=== PATIENT | female | born 1935 | race African-American/Black ===

== ENCOUNTER 2021-08-06 16:59 | Inpatient (IN) ==
[2021-08-06] MEDS ORDERED: SODIUM CHLORIDE 0.9% 1,000 ML IV STA ×2 (18:43→19:13)
[2021-08-06] MEDS ORDERED: ALBUTEROL/IPRATROPIUM 3 ML NEB RESP TX STA (18:43)
[2021-08-06 18:57] LABS: Basophils % 0.2 % (0.0-0.8); Eosinophils % 0.1 % (0.00-10.9); Hematocrit 48.1 VOL% (35.7-47.0); Immature Granulocytes % 0.4 %; Immature Granulocytes Absolute 0.04 #; Lymphocytes # 1.1 10*3/uL (1.4-4.0); Lymphocytes % 11.8 % (21.3-54.2); Mean Corpuscular HGB Conc 31.2 GM/DL (32-36); Mean Corpuscular Volume 92.5 FL (87-102); Monocytes # 0.4 10*3/uL (0.11-0.8); Monocytes % 4.2 % (1.7-12.7); Neutrophils % 83.3 % (38.7-73.9); Platelet Count 135 T/CUMM (130-400); White Blood Count 9.6 T/CUMM (4-12)
[2021-08-06 19:05] LABS: Albumin 3.3 G/DL (3.4-5.0); Bilirubin,Total 0.4 MG/DL (0.20-1.00); Osmolality,Calculated 368.3 MOS/KG (273-304); Potassium 3.7 MMOL/L (3.5-5.1); Total Protein 8.2 G/DL (6.4-8.2)
[2021-08-06] MEDS ORDERED: PIPERACILLIN/TAZOBACTAM 3,375 MG in SODIUM CHLORIDE 0.9% 100 ML IV STA (19:13)
[2021-08-06 19:40] LABS: Band Neutrophils 22 % (0-10); Lymphocytes 6 % (20-55); Metamyelocytes 2 %; Total Cells Counted 100
[2021-08-06 19:41] LABS: Platelet Estimate Normal
[2021-08-06 19:47] LABS: Arterial Base Excess iSTAT 2 MMOL/L (-2.5-2.5); Arterial Bicarbonate iSTAT 26.3 MMOL/L (20-26); Arterial O2 Saturation iSTAT 97 % (95-100); Arterial PCO2 iSTAT 38 MM HG (35-48); Arterial PO2 iSTAT 86 MM HG (80-95); Arterial Total CO2 iSTAT 27 MMO/L (23-27); Arterial pH iSTAT 7.443 (7.35-7.45)
[2021-08-06] MEDS ORDERED: MORPHINE 2 MG/1 ML SYRINGE IV PRN (20:09)
[2021-08-06] MEDS ORDERED: DEXTROSE 10% 250 ML BAG IV PRN (20:09)
[2021-08-06] MEDS ORDERED: GLUCAGON 1 MG VIAL IM PRN (20:09)
[2021-08-06] MEDS ORDERED: ONDANSETRON 4 MG/2 ML VIAL IV PRN (20:09)
[2021-08-06] MEDS ORDERED: ACETAMINOPHEN 325 MG TABLET PO PRN (20:09)
[2021-08-06 20:29] LABS: Bacteria,Urine Many /HPF (Few); RBC,Urine 49 /HPF (0-4)
[2021-08-06 20:32] LABS: Urine Appearance Turbid (Clear); Urine Color Brown (Yellow)
[2021-08-06 20:36] LABS: Bilirubin,Urine Negative (Negative); Blood, Urine Large mg/dL (Negative); Glucose,Urine (UA) Negative (Negative); Ketones,Urine Negative (Negative); Nitrite,Urine Positive (Negative); Protein,Urine 30 mg/dL (Negative); Urine Urobilinogen 0.2 eU/dL (<2.0); Urine pH 5.5 (4.5-8.0)
[2021-08-06 22:11] LABS: INR 1.1; PT Patient Result 12.3 SECS (10.5-12.0)
[2021-08-07] MEDS ORDERED: VANCOMYCIN INJ 1,000 MG in SODIUM CHLORIDE 0.9% 250 ML IV SCH
[2021-08-07] MEDS: ALBUTEROL/IPRATROPIUM 3 ML NEB RESP TX SCH ×4 (00:35→19:35)
[2021-08-07] MEDS: INSULIN LISPRO 100 UNIT/ML SUBCUT SCH ×4 (01:08→18:26)
[2021-08-07] MEDS: LACTATED RINGERS 1,000 ML IV SCH ×2 (01:12→10:41)
[2021-08-07 01:17] LABS: Basophils % 0.2 % (0.0-0.8); Hematocrit 40.7 VOL% (35.7-47.0); Immature Granulocytes % 0.2 %; Immature Granulocytes Absolute 0.01 #; Lymphocytes % 20.6 % (21.3-54.2); Mean Corpuscular Volume 93.6 FL (87-102); Monocytes # 0.4 10*3/uL (0.11-0.8); Monocytes % 8.8 % (1.7-12.7); Neutrophils % 70.2 % (38.7-73.9); Red Blood Count 4.35 MC/CUMM (3.8-5.5)
[2021-08-07 01:19] LABS: Hemoglobin 12.6 GM/DL (12.0-16.0); White Blood Count 4.7 T/CUMM (4-12)
[2021-08-07 01:20] LABS: Platelet Count 98 T/CUMM (130-400)
[2021-08-07 01:50] LABS: Alanine Aminotransferase 32 U/L (13-56); Albumin 2.3 G/DL (3.4-5.0); Alkaline Phosphatase 81 U/L (45-117); Aspartate Amino Transferase 30 U/L (0-37); Bilirubin,Total < 0.39 MG/DL (0.20-1.00); Blood Urea Nitrogen 143 MG/DL (7-18); Calcium 9.9 MG/DL (8.5-10.1); Carbon Dioxide 23 MMOL/L (21-32); Chloride 117 MMOL/L (98-107); Glucose 439 MG/DL (74-106); Potassium 3.2 MMOL/L (3.5-5.1); Sodium 150 MMOL/L (136-145); Thyroid Stimulating Hormone 0.268 uIU/ml (0.358-3.74); Total Protein 6.8 G/DL (6.4-8.2)
[2021-08-07 01:52] LABS: Band Neutrophils 8 % (0-10); Lymphocytes 23 % (20-55); Metamyelocytes 7 %; Myelocytes 4 %; Total Cells Counted 100
[2021-08-07 02:25] LABS: Free T4 (Free Thyroxine) 1.73 NG/DL (0.76-1.46)
[2021-08-07 02:37] LABS: Hypochromia 1+; Platelet Estimate Decreased
[2021-08-07] MEDS: PIPERACILLIN/TAZOBACTAM 3,375 MG in SODIUM CHLORIDE 0.9% 100 ML IV SCH ×3 (05:26→21:12)
[2021-08-07] MEDS: POTASSIUM CHLORIDE RIDER 10 MEQ/100 ML PREMIX IV SCH ×2 (05:27→06:45)
[2021-08-07] MEDS ORDERED: INSULIN REGULAR 100 UNIT/ML IV ONE (06:58)
[2021-08-07] MEDS: DEXT 5% NACL 0.45% KCL 20 MEQ 20 MEQ/1,000 ML BAG IV SCH ×2 (07:54→18:26)
[2021-08-07] MEDS ORDERED: POTASSIUM CHLORIDE INJ 40 MEQ in SODIUM CHLORIDE 0.45% 1,000 ML IV SCH (08:00)
[2021-08-07] MEDS: INSULIN GLARGINE 100 UNIT/ML SUBCUT SCH (08:38)
[2021-08-07] MEDS: PANTOPRAZOLE 40 MG VIAL IV SCH (08:40)
[2021-08-07] MEDS ORDERED: ENOXAPARIN 30 MG/0.3 ML SYRINGE SUBCUT SCH (09:00)
[2021-08-07 12:27] LABS: Calcium 9.6 MG/DL (8.5-10.1); Osmolality,Calculated 349.4 MOS/KG (273-304); Potassium 3.3 MMOL/L (3.5-5.1)
[2021-08-08] MEDS: ALBUTEROL/IPRATROPIUM 3 ML NEB RESP TX SCH ×4 (00:30→19:25)
[2021-08-08] MEDS ORDERED: METOPROLOL TARTRATE 5 MG/5 ML VIAL IV ONE (01:10)
[2021-08-08] MEDS: INSULIN LISPRO 100 UNIT/ML SUBCUT SCH ×4 (01:13→18:30)
[2021-08-08] MEDS: DEXT 5% NACL 0.45% KCL 20 MEQ 20 MEQ/1,000 ML BAG IV SCH (04:39)
[2021-08-08 06:17] LABS: Basophils % 0.2 % (0.0-0.8); Hematocrit 34.6 VOL% (35.7-47.0); Immature Granulocytes % 0.5 %; Immature Granulocytes Absolute 0.05 #; Lymphocytes # 0.9 10*3/uL (1.4-4.0); Lymphocytes % 8.7 % (21.3-54.2); Mean Corpuscular HGB Conc 30.6 GM/DL (32-36); Mean Corpuscular Volume 94.3 FL (87-102); Monocytes # 0.4 10*3/uL (0.11-0.8); Monocytes % 3.8 % (1.7-12.7); Neutrophils % 86.8 % (38.7-73.9); Red Blood Count 3.67 MC/CUMM (3.8-5.5); Red Cell Distribution Width 15.3 % (9.3-17.3)
[2021-08-08 06:18] LABS: Hemoglobin 10.6 GM/DL (12.0-16.0); White Blood Count 9.9 T/CUMM (4-12)
[2021-08-08 06:19] LABS: Platelet Count 92 T/CUMM (130-400)
[2021-08-08 06:38] LABS: Band Neutrophils 6 % (0-10); Lymphocytes 12 % (20-55); Platelet Estimate Decreased; Total Cells Counted 100
[2021-08-08 07:04] LABS: Calcium 9.5 MG/DL (8.5-10.1); Osmolality,Calculated 340.9 MOS/KG (273-304)
[2021-08-08] MEDS: PIPERACILLIN/TAZOBACTAM 3,375 MG in SODIUM CHLORIDE 0.9% 100 ML IV SCH ×3 (07:40→21:01)
[2021-08-08] MEDS ORDERED: POTASSIUM CHLORIDE 20 MEQ TABLET PO ONE (08:02)
[2021-08-08] MEDS: PANTOPRAZOLE 40 MG VIAL IV SCH (09:43)
[2021-08-08] MEDS: INSULIN GLARGINE 100 UNIT/ML SUBCUT SCH (09:43)
[2021-08-08] MEDS: POTASSIUM CHLORIDE INJ 40 MEQ in DEXTROSE 5% 1,000 ML IV SCH ×2 (10:41→21:01)
[2021-08-08] MEDS: VANCOMYCIN INJ 1,000 MG in SODIUM CHLORIDE 0.9% 250 ML IV SCH (12:38)
[2021-08-09] MEDS: ALBUTEROL/IPRATROPIUM 3 ML NEB RESP TX SCH ×4 (00:12→19:01)
[2021-08-09 01:12] LABS: Basophils % 0.1 % (0.0-0.8); Eosinophils # 0.1 10*3/uL (0.0-0.87); Eosinophils % 0.7 % (0.00-10.9); Hematocrit 34.7 VOL% (35.7-47.0); Hemoglobin 10.5 GM/DL (12.0-16.0); Immature Granulocytes % 0.7 %; Immature Granulocytes Absolute 0.08 #; Lymphocytes # 1.2 10*3/uL (1.4-4.0); Lymphocytes % 9.5 % (21.3-54.2); Mean Corpuscular HGB Conc 30.3 GM/DL (32-36); Mean Corpuscular Volume 94.6 FL (87-102); Monocytes # 0.5 10*3/uL (0.11-0.8); Monocytes % 4.3 % (1.7-12.7); NRBC # 0.02 10*3/uL; Neutrophils % 84.7 % (38.7-73.9); Platelet Count 86 T/CUMM (130-400); Red Blood Count 3.67 MC/CUMM (3.8-5.5); Red Cell Distribution Width 15.5 % (9.3-17.3); White Blood Count 12.1 T/CUMM (4-12)
[2021-08-09 01:25] LABS: Calcium 8.9 MG/DL (8.5-10.1); Potassium 4.1 MMOL/L (3.5-5.1)
[2021-08-09 01:35] LABS: Calcium 9.1 MG/DL (8.5-10.1); Osmolality,Calculated 319.9 MOS/KG (273-304); Potassium 4.2 MMOL/L (3.5-5.1)
[2021-08-09 01:42] LABS: Lymphocytes 5 % (20-55); Platelet Estimate Adequate; Total Cells Counted 100
[2021-08-09] MEDS: INSULIN LISPRO 100 UNIT/ML SUBCUT SCH ×4 (02:24→18:53)
[2021-08-09] MEDS: PIPERACILLIN/TAZOBACTAM 3,375 MG in SODIUM CHLORIDE 0.9% 100 ML IV SCH ×3 (04:57→21:37)
[2021-08-09] MEDS ORDERED: MIDAZOLAM 2 MG/2 ML VIAL ONE (07:25)
[2021-08-09] MEDS ORDERED: MIDAZOLAM 10 MG/2 ML VIAL IV ONE (07:29)
[2021-08-09] MEDS ORDERED: LIDOCAINE 1% 20 ML VIAL MISC INJ ONE (07:30)
[2021-08-09] MEDS ORDERED: DEXTROSE 5% 1,000 ML IV SCH (07:46)
[2021-08-09] MEDS: POTASSIUM CHLORIDE INJ 40 MEQ in DEXTROSE 5% 1,000 ML IV SCH (08:23)
[2021-08-09] MEDS: ASPIRIN CHEW 81 MG TABLET PO SCH (10:18)
[2021-08-09] MEDS: PANTOPRAZOLE 40 MG VIAL IV SCH (10:20)
[2021-08-09] MEDS: VANCOMYCIN INJ 1,000 MG in SODIUM CHLORIDE 0.9% 250 ML IV SCH (10:21)
[2021-08-09] MEDS: INSULIN GLARGINE 100 UNIT/ML SUBCUT SCH (10:24)
[2021-08-09] MEDS: FLUCONAZOLE 100 MG TABLET PO SCH (14:21)
[2021-08-10] MEDS: INSULIN LISPRO 100 UNIT/ML SUBCUT SCH ×4 (01:28→17:04)
[2021-08-10] MEDS: ALBUTEROL/IPRATROPIUM 3 ML NEB RESP TX SCH ×4 (01:30→19:54)
[2021-08-10 06:42] LABS: Basophils % 0.1 % (0.0-0.8); Eosinophils # 0.2 10*3/uL (0.0-0.87); Eosinophils % 2.8 % (0.00-10.9); Hematocrit 32.9 VOL% (35.7-47.0); Hemoglobin 10.1 GM/DL (12.0-16.0); Immature Granulocytes Absolute 0.08 #; Lymphocytes # 0.9 10*3/uL (1.4-4.0); Lymphocytes % 11.1 % (21.3-54.2); Mean Corpuscular HGB Conc 30.7 GM/DL (32-36); Mean Corpuscular Volume 94.3 FL (87-102); Monocytes # 0.4 10*3/uL (0.11-0.8); Monocytes % 5.3 % (1.7-12.7); NRBC # 0.03 10*3/uL; Neutrophils % 79.7 % (38.7-73.9); Platelet Count 88 T/CUMM (130-400); Red Blood Count 3.49 MC/CUMM (3.8-5.5); Red Cell Distribution Width 15.5 % (9.3-17.3); White Blood Count 7.8 T/CUMM (4-12)
[2021-08-10 07:02] LABS: Calcium 8.9 MG/DL (8.5-10.1); Osmolality,Calculated 302.3 MOS/KG (273-304); Potassium 4.1 MMOL/L (3.5-5.1)
[2021-08-10] MEDS ORDERED: MAGNESIUM SULF RIDER 2 GM/50 ML PREMIX IV ONE (07:35)
[2021-08-10] MEDS: PIPERACILLIN/TAZOBACTAM 3,375 MG in SODIUM CHLORIDE 0.9% 100 ML IV SCH ×3 (07:42→21:14)
[2021-08-10] MEDS: INSULIN GLARGINE 100 UNIT/ML SUBCUT SCH (09:31)
[2021-08-10] MEDS: ASPIRIN CHEW 81 MG TABLET PO SCH (09:31)
[2021-08-10] MEDS: FLUCONAZOLE 100 MG TABLET PO SCH (09:31)
[2021-08-10] MEDS: PANTOPRAZOLE 40 MG VIAL IV SCH (09:32)
[2021-08-10] MEDS: VANCOMYCIN INJ 1,000 MG in SODIUM CHLORIDE 0.9% 250 ML IV SCH (11:18)
[2021-08-11] MEDS: ALBUTEROL/IPRATROPIUM 3 ML NEB RESP TX SCH ×2 (00:38→07:20)
[2021-08-11] MEDS: INSULIN LISPRO 100 UNIT/ML SUBCUT SCH ×3 (01:15→11:45)
[2021-08-11] MEDS: PIPERACILLIN/TAZOBACTAM 3,375 MG in SODIUM CHLORIDE 0.9% 100 ML IV SCH (04:15)
[2021-08-11 05:42] LABS: Basophils % 0.3 % (0.0-0.8); Eosinophils # 0.3 10*3/uL (0.0-0.87); Eosinophils % 3.9 % (0.00-10.9); Hematocrit 30.4 VOL% (35.7-47.0); Hemoglobin 9.2 GM/DL (12.0-16.0); Immature Granulocytes % 0.8 %; Immature Granulocytes Absolute 0.06 #; Lymphocytes # 0.9 10*3/uL (1.4-4.0); Lymphocytes % 11.6 % (21.3-54.2); Mean Corpuscular HGB Conc 30.3 GM/DL (32-36); Mean Corpuscular Volume 94.7 FL (87-102); Monocytes # 0.4 10*3/uL (0.11-0.8); Monocytes % 4.6 % (1.7-12.7); NRBC # 0.02 10*3/uL; Neutrophils % 78.8 % (38.7-73.9); Platelet Count 90 T/CUMM (130-400); Red Blood Count 3.21 MC/CUMM (3.8-5.5); Red Cell Distribution Width 15.5 % (9.3-17.3); White Blood Count 7.9 T/CUMM (4-12)
[2021-08-11 05:53] LABS: Calcium 8.9 MG/DL (8.5-10.1); Osmolality,Calculated 298.4 MOS/KG (273-304); Potassium 3.8 MMOL/L (3.5-5.1)
[2021-08-11 06:14] LABS: Platelet Estimate Decreased
[2021-08-11] MEDS: PANTOPRAZOLE 40 MG VIAL IV SCH (08:10)
[2021-08-11] MEDS: INSULIN GLARGINE 100 UNIT/ML SUBCUT SCH (08:26)
[2021-08-11] MEDS: FLUCONAZOLE 100 MG TABLET PO SCH (08:27)
[2021-08-11] MEDS: ASPIRIN CHEW 81 MG TABLET PO SCH (08:27)
[2021-08-11 12:12] VITALS: BP 153/85
[2021-08-11] MEDS ORDERED: AMOXICILLIN/CLAV 500 MG TABLET PO SCH (15:00)
== END 2021-08-11 13:50 | DRG 871 ==
LOC: EDUNIT# → EDBD → N.ED 16:59 → SUATTDRO 20:09 → N.EDINP 20:09 → N.TELES 20:53
PROVIDERS: ADMIT Family Medicine; ATTEND Internal Medicine

== ENCOUNTER 2021-10-27 16:43 | Inpatient (IN) ==
[2021-10-27 17:53] LABS: Basophils # 0.1 10*3/uL (0.0-0.2); Basophils % 0.4 % (0.0-0.8); Hematocrit 40.4 VOL% (35.7-47.0); Hemoglobin 12.1 GM/DL (12.0-16.0); Immature Granulocytes % 0.6 %; Immature Granulocytes Absolute 0.08 #; Lymphocytes # 1.2 10*3/uL (1.4-4.0); Mean Corpuscular Volume 95.3 FL (87-102); Mean Platelet Volume 13.7 FL (9.6-12.0); Monocytes # 0.7 10*3/uL (0.11-0.8); Platelet Count 324 T/CUMM (130-400); Red Blood Count 4.24 MC/CUMM (3.8-5.5); Red Cell Distribution Width 15.9 % (9.3-17.3); White Blood Count 13.1 T/CUMM (4-12)
[2021-10-27] MEDS ORDERED: PANTOPRAZOLE INJ 80 MG in SODIUM CHLORIDE 0.9% 100 ML IV ONE ×2 (18:32→19:00)
[2021-10-27] MEDS ORDERED: PANTOPRAZOLE INJ 200 MG in SODIUM CHLORIDE 0.9% 250 ML IV SCH (19:00)
[2021-10-27] MEDS ORDERED: ONDANSETRON 4 MG/2 ML VIAL IV ONE (19:53)
[2021-10-27] MEDS ORDERED: SODIUM CHLORIDE 0.9% 500 ML IV STA (19:53)
[2021-10-27] MEDS ORDERED: ONDANSETRON 4 MG/2 ML VIAL ONE (19:53)
[2021-10-27 20:55] LABS: Bilirubin,Urine Negative (Negative); Blood, Urine Moderate mg/dL (Negative); Glucose,Urine (UA) >1000 mg/dL (Negative); Hyaline Casts,Urine 9 /LPF (0-3); Ketones,Urine 15 mg/dL (Negative); Mucus,Urine Occasional /LPF (Occasional); Nitrite,Urine Negative (Negative); Protein,Urine 30 mg/dL (Negative); RBC,Urine 35-40 /HPF (0-4); Squamous Epithelial Cell,Urine Few /HPF (0-10); Transitional Epi Cells,Urine Few /HPF (<1); Urine Appearance Clear (Clear); Urine Color Yellow (Yellow); Urine Specific Gravity 1.015 (1.001-1.035); Urine Urobilinogen 0.2 eU/dL (<2.0)
[2021-10-27 20:59] LABS: Hemoglobin 11.4 GM/DL (12.0-16.0)
[2021-10-27 21:03] LABS: Albumin 2.7 G/DL (3.4-5.0); Bilirubin,Total 0.6 MG/DL (0.20-1.00); Calcium 9.8 MG/DL (8.5-10.1); Osmolality,Calculated 329.7 MOS/KG (273-304); Potassium 3.3 MMOL/L (3.5-5.1); Total Protein 7.6 G/DL (6.4-8.2)
[2021-10-27] MEDS ORDERED: cefTRIAXone 1,000 MG in SODIUM CHLORIDE 0.9% 100 ML IV STA (21:15)
[2021-10-27 22:26] LABS: Arterial Base Excess iSTAT 3 MMOL/L (-2.5-2.5); Arterial Bicarbonate iSTAT 28.7 MMOL/L (20-26); Arterial O2 Saturation iSTAT 77 % (95-100); Arterial PCO2 iSTAT 47 MM HG (35-48); Arterial PO2 iSTAT 43 MM HG (80-95); Arterial Total CO2 iSTAT 30 MMO/L (23-27); Arterial pH iSTAT 7.397 (7.35-7.45)
[2021-10-28] MEDS ORDERED: VANCOMYCIN INJ 750 MG in SODIUM CHLORIDE 0.9% 250 ML IV SCH
[2021-10-28] MEDS: PIPERACILLIN/TAZOBACTAM 3,375 MG in SODIUM CHLORIDE 0.9% 100 ML IV SCH ×2 (00:38→08:52)
[2021-10-28] MEDS ORDERED: GLUCAGON 1 MG VIAL IM PRN (00:57)
[2021-10-28] MEDS ORDERED: hydrALAZINE 20 MG/1 ML VIAL IV PRN (00:57)
[2021-10-28] MEDS ORDERED: MORPHINE 2 MG/1 ML SYRINGE IV PRN (00:57)
[2021-10-28] MEDS ORDERED: ONDANSETRON 4 MG/2 ML VIAL IV PRN (00:57)
[2021-10-28] MEDS ORDERED: NICOTINE 21 MG/24 HR PATCH TRANSDERM PRN (00:57)
[2021-10-28 01:43] LABS: Arterial Base Excess iSTAT 6 MMOL/L (-2.5-2.5); Arterial Bicarbonate iSTAT 33.1 MMOL/L (20-26); Arterial O2 Saturation iSTAT 85 % (95-100); Arterial PCO2 iSTAT 59 MM HG (35-48); Arterial PO2 iSTAT 54 MM HG (80-95); Arterial Total CO2 iSTAT 35 MMO/L (23-27); Arterial pH iSTAT 7.361 (7.35-7.45)
[2021-10-28] MEDS ORDERED: DIGOXIN 0.5 MG/2 ML AMP IV ONE ×2 (02:30→03:30)
[2021-10-28] MEDS ORDERED: SODIUM CHLORIDE 0.9% 250 ML IV ONE (02:30)
[2021-10-28 04:51] LABS: Calcium 9.1 MG/DL (8.5-10.1); Osmolality,Calculated 333.6 MOS/KG (273-304); Potassium 3.8 MMOL/L (3.5-5.1)
[2021-10-28 04:55] LABS: Basophils % 0.3 % (0.0-0.8); Eosinophils % 0.1 % (0.00-10.9); Hemoglobin 11.1 GM/DL (12.0-16.0); Immature Granulocytes % 0.2 %; Immature Granulocytes Absolute 0.02 #; Lymphocytes # 1.5 10*3/uL (1.4-4.0); Lymphocytes % 16.2 % (21.3-54.2); Mean Corpuscular HGB Conc 29.2 GM/DL (32-36); Mean Corpuscular Volume 97.9 FL (87-102); Mean Platelet Volume 13.5 FL (9.6-12.0); Monocytes # 0.4 10*3/uL (0.11-0.8); Monocytes % 4.7 % (1.7-12.7); Neutrophils % 78.5 % (38.7-73.9); Platelet Count 283 T/CUMM (130-400); Red Blood Count 3.88 MC/CUMM (3.8-5.5); Red Cell Distribution Width 15.9 % (9.3-17.3); White Blood Count 9.3 T/CUMM (4-12)
[2021-10-28 05:20] LABS: Band Neutrophils 7 % (0-10); Eosinophils 1 % (0-10); Lymphocytes 15 % (20-55); Platelet Estimate Adequate; Total Cells Counted 100
[2021-10-28] MEDS: LACTATED RINGERS 1,000 ML IV SCH ×6 (07:29→21:52)
[2021-10-28] MEDS: INSULIN REGULAR 100 UNIT/ML SUBCUT SCH ×3 (08:38→19:38)
[2021-10-28] MEDS ORDERED: HEPARIN 5,000 UNIT/1 ML VIAL SUBCUT SCH (09:00)
[2021-10-28] MEDS ORDERED: LACTATED RINGERS 1,000 ML IV ONE (09:47)
[2021-10-28] MEDS ORDERED: LACTATED RINGERS 500 ML IV ONE (10:47)
[2021-10-28] MEDS: METOPROLOL TARTRATE 25 MG TABLET PO SCH ×2 (13:05→20:15)
[2021-10-28] MEDS: cefTRIAXone 2,000 MG in SODIUM CHLORIDE 0.9% 100 ML IV SCH (13:11)
[2021-10-28 15:58] LABS: Calcium 9.2 MG/DL (8.5-10.1); Osmolality,Calculated 322.9 MOS/KG (273-304); Potassium 3.7 MMOL/L (3.5-5.1)
[2021-10-28 18:57] LABS: Calcium 9.2 MG/DL (8.5-10.1); Osmolality,Calculated 309.3 MOS/KG (273-304); Potassium 5.1 MMOL/L (3.5-5.1)
[2021-10-28] MEDS: LATANOPROST 0.005% OPH SOLN 2.5 ML BOTTLE BOTH EYES SCH (20:15)
[2021-10-28] MEDS: ZINC OXIDE PASTE 113 GM TUBE TOP SCH (20:15)
[2021-10-28] MEDS: BRIMONIDINE/TIMOLOL OPH SOLN 5 ML BOTTLE BOTH EYES SCH (20:15)
[2021-10-28] MEDS: CARBIDOPA/LEVODOPA 10-100 MG TABLET PEG SCH (20:15)
[2021-10-29 00:44] LABS: Basophils % 0.3 % (0.0-0.8); Calcium 9.4 MG/DL (8.5-10.1); Eosinophils % 0.1 % (0.00-10.9); Hematocrit 32.1 VOL% (35.7-47.0); Hemoglobin 9.6 GM/DL (12.0-16.0); Immature Granulocytes % 0.6 %; Immature Granulocytes Absolute 0.08 #; Lymphocytes # 1.4 10*3/uL (1.4-4.0); Lymphocytes % 11.1 % (21.3-54.2); Mean Corpuscular HGB Conc 29.9 GM/DL (32-36); Mean Platelet Volume 13.7 FL (9.6-12.0); Monocytes # 0.5 10*3/uL (0.11-0.8); Monocytes % 3.6 % (1.7-12.7); Neutrophils % 84.3 % (38.7-73.9); Osmolality,Calculated 315.4 MOS/KG (273-304); Platelet Count 223 T/CUMM (130-400); Potassium 3.4 MMOL/L (3.5-5.1); Red Blood Count 3.31 MC/CUMM (3.8-5.5); Red Cell Distribution Width 15.6 % (9.3-17.3)
[2021-10-29] MEDS: INSULIN REGULAR 100 UNIT/ML SUBCUT SCH ×6 (00:54→21:10)
[2021-10-29] MEDS: LACTATED RINGERS 1,000 ML IV SCH ×3 (00:54→10:38)
[2021-10-29 01:00] LABS: Phosphorous 2.3 MG/DL (2.5-4.9)
[2021-10-29 01:10] LABS: Band Neutrophils 9 % (0-10); Hypochromia Slight; Lymphocytes 14 % (20-55); Platelet Estimate Normal; Total Cells Counted 100
[2021-10-29 04:15] LABS: Calcium 9.3 MG/DL (8.5-10.1); Osmolality,Calculated 312.6 MOS/KG (273-304); Potassium 3.2 MMOL/L (3.5-5.1)
[2021-10-29] MEDS ORDERED: MAGNESIUM SULF RIDER 2 GM/50 ML PREMIX IV ONE (07:57)
[2021-10-29] MEDS: ZINC OXIDE PASTE 113 GM TUBE TOP SCH ×2 (08:35→21:10)
[2021-10-29] MEDS: BRIMONIDINE/TIMOLOL OPH SOLN 5 ML BOTTLE BOTH EYES SCH ×2 (08:35→21:10)
[2021-10-29] MEDS: OMEPRAZOLE ODT 20 MG TABLET PER TUBE SCH ×2 (08:36→21:10)
[2021-10-29] MEDS: METOPROLOL TARTRATE 25 MG TABLET PO SCH ×2 (08:36→21:10)
[2021-10-29] MEDS: POTASSIUM BICARB EFFERVESCENT 20 MEQ TAB.EFF PEG SCH ×2 (08:36→21:10)
[2021-10-29] MEDS ORDERED: POTASSIUM BICARB EFFERVESCENT 20 MEQ TAB.EFF PEG SCH (09:00)
[2021-10-29] MEDS ORDERED: PANTOPRAZOLE 40 MG VIAL IV SCH (09:00)
[2021-10-29] MEDS ORDERED: SODIUM CHLORIDE 0.45% 1,000 ML IV SCH (09:30)
[2021-10-29] MEDS: cefTRIAXone 2,000 MG in SODIUM CHLORIDE 0.9% 100 ML IV SCH (13:00)
[2021-10-29] MEDS: lisinopriL 2.5 MG TABLET PO SCH (13:17)
[2021-10-29] MEDS: POLYETHYLENE GLYCOL POWDER 17 GM PACK PEG SCH (14:21)
[2021-10-29] MEDS: INSULIN GLARGINE 100 UNIT/ML SUBCUT SCH (16:00)
[2021-10-29 20:01] LABS: Calcium 9.6 MG/DL (8.5-10.1); Osmolality,Calculated 319.2 MOS/KG (273-304); Potassium 3.3 MMOL/L (3.5-5.1)
[2021-10-29 20:07] LABS: Hematocrit 35.4 VOL% (35.7-47.0); Hemoglobin 10.3 GM/DL (12.0-16.0)
[2021-10-29] MEDS: LATANOPROST 0.005% OPH SOLN 2.5 ML BOTTLE BOTH EYES SCH (21:10)
[2021-10-29] MEDS: CEPHALEXIN 50 MG/ML 100 ML/BOTTLE PEG SCH (21:10)
[2021-10-29] MEDS: CARBIDOPA/LEVODOPA 10-100 MG TABLET PEG SCH (21:10)
[2021-10-30 06:22] LABS: Calcium 9.5 MG/DL (8.5-10.1); Osmolality,Calculated 324.9 MOS/KG (273-304)
[2021-10-30 06:32] LABS: Basophils % 0.1 % (0.0-0.8); Hematocrit 33.5 VOL% (35.7-47.0); Immature Granulocytes % 0.9 %; Immature Granulocytes Absolute 0.14 #; Lymphocytes # 1.2 10*3/uL (1.4-4.0); Lymphocytes % 8.2 % (21.3-54.2); Mean Corpuscular HGB Conc 28.7 GM/DL (32-36); Mean Platelet Volume 14.5 FL (9.6-12.0); Monocytes # 0.6 10*3/uL (0.11-0.8); Monocytes % 3.7 % (1.7-12.7); NRBC # 0.07 10*3/uL; Neutrophils % 87.1 % (38.7-73.9); Platelet Count 224 T/CUMM (130-400); Red Blood Count 3.35 MC/CUMM (3.8-5.5); Red Cell Distribution Width 15.7 % (9.3-17.3)
[2021-10-30 06:51] LABS: Hemoglobin 9.6 GM/DL (12.0-16.0)
[2021-10-30] MEDS: BRIMONIDINE/TIMOLOL OPH SOLN 5 ML BOTTLE BOTH EYES SCH ×2 (08:43→21:44)
[2021-10-30] MEDS: POTASSIUM BICARB EFFERVESCENT 20 MEQ TAB.EFF PEG SCH ×2 (08:43→21:47)
[2021-10-30] MEDS: lisinopriL 2.5 MG TABLET PO SCH (08:43)
[2021-10-30] MEDS: ZINC OXIDE PASTE 113 GM TUBE TOP SCH ×2 (08:43→21:48)
[2021-10-30] MEDS: OMEPRAZOLE ODT 20 MG TABLET PER TUBE SCH ×2 (08:43→21:45)
[2021-10-30] MEDS: METOPROLOL TARTRATE 25 MG TABLET PO SCH ×2 (08:43→21:45)
[2021-10-30] MEDS: CEPHALEXIN 50 MG/ML 100 ML/BOTTLE PEG SCH ×4 (08:44→21:45)
[2021-10-30] MEDS: POLYETHYLENE GLYCOL POWDER 17 GM PACK PEG SCH (08:44)
[2021-10-30] MEDS: INSULIN GLARGINE 100 UNIT/ML SUBCUT SCH (08:46)
[2021-10-30] MEDS: INSULIN REGULAR 100 UNIT/ML SUBCUT SCH ×4 (08:46→21:48)
[2021-10-30] MEDS: DEXTROSE 5% 1,000 ML IV SCH (11:00)
[2021-10-30] MEDS: LATANOPROST 0.005% OPH SOLN 2.5 ML BOTTLE BOTH EYES SCH (21:45)
[2021-10-30] MEDS: CARBIDOPA/LEVODOPA 10-100 MG TABLET PEG SCH (21:45)
[2021-10-31] MEDS: DEXTROSE 5% 1,000 ML IV SCH ×3 (01:08→22:50)
[2021-10-31 06:44] LABS: Basophils % 0.2 % (0.0-0.8); Eosinophils # 0.2 10*3/uL (0.0-0.87); Eosinophils % 1.2 % (0.00-10.9); Hemoglobin 9.1 GM/DL (12.0-16.0); Immature Granulocytes % 0.7 %; Immature Granulocytes Absolute 0.09 #; Lymphocytes # 1.3 10*3/uL (1.4-4.0); Lymphocytes % 10.1 % (21.3-54.2); Mean Corpuscular HGB Conc 29.4 GM/DL (32-36); Mean Corpuscular Volume 97.8 FL (87-102); Mean Platelet Volume 14.7 FL (9.6-12.0); Monocytes # 0.6 10*3/uL (0.11-0.8); Monocytes % 4.9 % (1.7-12.7); NRBC # 0.05 10*3/uL; Neutrophils % 82.9 % (38.7-73.9); Platelet Count 203 T/CUMM (130-400); Red Blood Count 3.17 MC/CUMM (3.8-5.5); Red Cell Distribution Width 15.5 % (9.3-17.3); White Blood Count 13.1 T/CUMM (4-12)
[2021-10-31 06:51] LABS: Osmolality,Calculated 307.7 MOS/KG (273-304); Potassium 2.7 MMOL/L (3.5-5.1)
[2021-10-31] MEDS: OMEPRAZOLE ODT 20 MG TABLET PER TUBE SCH ×2 (09:20→22:05)
[2021-10-31] MEDS: lisinopriL 2.5 MG TABLET PO SCH (09:20)
[2021-10-31] MEDS: METOPROLOL TARTRATE 25 MG TABLET PO SCH ×2 (09:20→22:05)
[2021-10-31] MEDS: BRIMONIDINE/TIMOLOL OPH SOLN 5 ML BOTTLE BOTH EYES SCH ×2 (09:21→22:11)
[2021-10-31] MEDS: ZINC OXIDE PASTE 113 GM TUBE TOP SCH ×2 (09:21→22:11)
[2021-10-31] MEDS: INSULIN REGULAR 100 UNIT/ML SUBCUT SCH ×4 (09:21→22:17)
[2021-10-31] MEDS: INSULIN GLARGINE 100 UNIT/ML SUBCUT SCH (09:22)
[2021-10-31] MEDS: POLYETHYLENE GLYCOL POWDER 17 GM PACK PEG SCH (09:26)
[2021-10-31] MEDS: CEPHALEXIN 50 MG/ML 100 ML/BOTTLE PEG SCH ×4 (09:26→22:12)
[2021-10-31 13:00] LABS: Calcium 8.5 MG/DL (8.5-10.1); Potassium 2.9 MMOL/L (3.5-5.1)
[2021-10-31] MEDS: POTASSIUM BICARB EFFERVESCENT 20 MEQ TAB.EFF PER TUBE PRN ×4 (14:30→22:06)
[2021-10-31] MEDS: CARBIDOPA/LEVODOPA 10-100 MG TABLET PEG SCH (22:05)
[2021-10-31] MEDS: LATANOPROST 0.005% OPH SOLN 2.5 ML BOTTLE BOTH EYES SCH (22:49)
[2021-11-01 06:32] LABS: Osmolality,Calculated 290.6 MOS/KG (273-304); Potassium 4.7 MMOL/L (3.5-5.1)
[2021-11-01 07:08] LABS: Basophils % 0.3 % (0.0-0.8); Eosinophils # 0.4 10*3/uL (0.0-0.87); Eosinophils % 3.1 % (0.00-10.9); Hematocrit 33.6 VOL% (35.7-47.0); Hemoglobin 9.9 GM/DL (12.0-16.0); Immature Granulocytes % 0.9 %; Lymphocytes # 1.2 10*3/uL (1.4-4.0); Lymphocytes % 10.8 % (21.3-54.2); Mean Corpuscular HGB Conc 29.5 GM/DL (32-36); Mean Corpuscular Volume 95.7 FL (87-102); Mean Platelet Volume 14.2 FL (9.6-12.0); Monocytes # 0.7 10*3/uL (0.11-0.8); NRBC # 0.04 10*3/uL; Neutrophils % 78.9 % (38.7-73.9); Platelet Count 212 T/CUMM (130-400); Red Blood Count 3.51 MC/CUMM (3.8-5.5); Red Cell Distribution Width 14.8 % (9.3-17.3); White Blood Count 11.5 T/CUMM (4-12)
[2021-11-01 07:26] LABS: Eosinophils 5 % (0-10); Hypochromia Slight; Lymphocytes 14 % (20-55); Microcytosis Slight; Platelet Estimate Adequate; Total Cells Counted 100
[2021-11-01] MEDS ORDERED: FUROSEMIDE 40 MG/4 ML VIAL IV ONE (09:00)
[2021-11-01] MEDS: CEPHALEXIN 50 MG/ML 100 ML/BOTTLE PEG SCH (09:25)
[2021-11-01] MEDS: POLYETHYLENE GLYCOL POWDER 17 GM PACK PEG SCH (09:27)
[2021-11-01] MEDS: lisinopriL 2.5 MG TABLET PO SCH (09:28)
[2021-11-01] MEDS: METOPROLOL TARTRATE 25 MG TABLET PO SCH (09:28)
[2021-11-01] MEDS: OMEPRAZOLE ODT 20 MG TABLET PER TUBE SCH (09:29)
[2021-11-01] MEDS: INSULIN GLARGINE 100 UNIT/ML SUBCUT SCH (09:29)
[2021-11-01] MEDS: ZINC OXIDE PASTE 113 GM TUBE TOP SCH (09:30)
[2021-11-01] MEDS: BRIMONIDINE/TIMOLOL OPH SOLN 5 ML BOTTLE BOTH EYES SCH (09:30)
[2021-11-01] MEDS: INSULIN REGULAR 100 UNIT/ML SUBCUT SCH ×2 (10:44→11:37)
[2021-11-01 11:32] VITALS: BP 136/79
[2021-11-01] MEDS: DEXTROSE 5% 1,000 ML IV SCH (12:51)
== END 2021-11-01 13:30 | DRG 177 ==
LOC: EDUNIT# → EDBD → N.ED 16:43 → SUATTDRO 10-28 00:57 → N.EDINP 10-28 00:57 → N.ICU 10-28 13:45 → N.3E 10-29 14:52
PROVIDERS: ADMIT Family Medicine; ATTEND Hospitalist

== ENCOUNTER 2021-11-09 11:03 | Observation (INO) ==
[2021-11-09 14:51] LABS: Alanine Aminotransferase 14 U/L (13-56); Alkaline Phosphatase 97 U/L (45-117); Aspartate Amino Transferase 25 U/L (0-37); Bilirubin,Total < 0.39 MG/DL (0.20-1.00); Blood Urea Nitrogen 29 MG/DL (7-18); Calcium 9.5 MG/DL (8.5-10.1); Carbon Dioxide 31 MMOL/L (21-32); Chloride 112 MMOL/L (98-107); Glucose 90 MG/DL (74-106); Osmolality,Calculated 297.4 MOS/KG (273-304); Potassium 4.6 MMOL/L (3.5-5.1); Sodium 147 MMOL/L (136-145); Total Protein 7.2 G/DL (6.4-8.2)
[2021-11-09 14:56] LABS: Basophils # 0.1 10*3/uL (0.0-0.2); Basophils % 0.4 % (0.0-0.8); Eosinophils # 0.1 10*3/uL (0.0-0.87); Eosinophils % 0.9 % (0.00-10.9); Hematocrit 35.1 VOL% (35.7-47.0); Hemoglobin 10.2 GM/DL (12.0-16.0); Immature Granulocytes % 0.7 %; Immature Granulocytes Absolute 0.09 #; Lymphocytes # 1.7 10*3/uL (1.4-4.0); Lymphocytes % 12.3 % (21.3-54.2); Mean Corpuscular HGB Conc 29.1 GM/DL (32-36); Mean Corpuscular Volume 97.2 FL (87-102); Monocytes # 0.6 10*3/uL (0.11-0.8); Monocytes % 4.1 % (1.7-12.7); NRBC # 0.13 10*3/uL; Neutrophils % 81.6 % (38.7-73.9); Platelet Count 233 T/CUMM (130-400); Red Blood Count 3.61 MC/CUMM (3.8-5.5); Red Cell Distribution Width 17.4 % (9.3-17.3); White Blood Count 13.7 T/CUMM (4-12)
[2021-11-09] MEDS ORDERED: PIPERACILLIN/TAZOBACTAM 3,375 MG VIAL IV ONE (16:01)
[2021-11-09] MEDS ORDERED: DEXTROSE 10% 250 ML BAG IV PRN (16:08)
[2021-11-09] MEDS ORDERED: GLUCAGON 1 MG VIAL IM PRN (16:08)
[2021-11-09] MEDS ORDERED: ONDANSETRON 4 MG/2 ML VIAL IV PRN (16:08)
[2021-11-09] MEDS ORDERED: ACETAMINOPHEN 325 MG TABLET PO PRN (16:08)
[2021-11-09] MEDS: PIPERACILLIN/TAZOBACTAM 3,375 MG in SODIUM CHLORIDE 0.9% 100 ML IV SCH ×2 (16:30→23:40)
[2021-11-09] MEDS ORDERED: ALBUTEROL/IPRATROPIUM 3 ML NEB RESP TX PRN (16:30)
[2021-11-09] MEDS ORDERED: ONDANSETRON ODT 4 MG TABLET PO PRN (16:30)
[2021-11-09 17:51] LABS: % Iron Saturation 11.5 % (18-50)
[2021-11-09] MEDS: INSULIN LISPRO 100 UNIT/ML SUBCUT SCH ×2 (19:29→23:16)
[2021-11-09] MEDS: ZINC OXIDE PASTE 113 GM TUBE TOP SCH (20:57)
[2021-11-09] MEDS: METOPROLOL TARTRATE 25 MG TABLET PEG SCH (20:57)
[2021-11-09] MEDS: CALCIUM (CARBONATE)/VITAMIN D 600 MG-400 UNIT TABLET PEG SCH (20:57)
[2021-11-09] MEDS: FERROUS SULFATE 300 MG/5 ML UDCUP PEG SCH (20:57)
[2021-11-09] MEDS: BRIMONIDINE/TIMOLOL OPH SOLN 5 ML BOTTLE BOTH EYES SCH (20:58)
[2021-11-09] MEDS: OMEPRAZOLE ODT 20 MG TABLET PER TUBE SCH (20:58)
[2021-11-09] MEDS ORDERED: LATANOPROST 0.005% OPH SOLN 2.5 ML BOTTLE BOTH EYES SCH (21:00)
[2021-11-09] MEDS ORDERED: CARBIDOPA/LEVODOPA 10-100 MG TABLET PEG SCH (21:00)
[2021-11-10 00:10] LABS: Folate > 24.00 NG/ML (5.38-24.0); Vitamin B12 1367 PG/ML (211-911)
[2021-11-10 03:13] LABS: INR 1.1; PT Patient Result 12.2 SECS (10.1-12.1)
[2021-11-10] MEDS: INSULIN LISPRO 100 UNIT/ML SUBCUT SCH ×2 (06:06→16:26)
[2021-11-10 06:20] LABS: Calcium 9.1 MG/DL (8.5-10.1); Osmolality,Calculated 302.1 MOS/KG (273-304); Potassium 4.2 MMOL/L (3.5-5.1)
[2021-11-10 06:39] LABS: Basophils # 0.1 10*3/uL (0.0-0.2); Basophils % 0.5 % (0.0-0.8); Eosinophils # 0.2 10*3/uL (0.0-0.87); Eosinophils % 2.5 % (0.00-10.9); Hematocrit 31.8 VOL% (35.7-47.0); Immature Granulocytes % 0.5 %; Immature Granulocytes Absolute 0.05 #; Lymphocytes % 10.4 % (21.3-54.2); Mean Corpuscular HGB Conc 28.6 GM/DL (32-36); Mean Corpuscular Volume 98.8 FL (87-102); Mean Platelet Volume 12.9 FL (9.6-12.0); Monocytes # 0.5 10*3/uL (0.11-0.8); Monocytes % 4.9 % (1.7-12.7); NRBC # 0.13 10*3/uL; Neutrophils % 81.2 % (38.7-73.9); Platelet Count 200 T/CUMM (130-400); Red Blood Count 3.22 MC/CUMM (3.8-5.5); Red Cell Distribution Width 17.2 % (9.3-17.3); White Blood Count 9.4 T/CUMM (4-12)
[2021-11-10 06:42] LABS: Hemoglobin 9.1 GM/DL (12.0-16.0)
[2021-11-10] MEDS ORDERED: FUROSEMIDE 40 MG/4 ML VIAL IV SCH (08:00)
[2021-11-10] MEDS ORDERED: POLYETHYLENE GLYCOL POWDER 17 GM PACK PEG SCH (09:00)
[2021-11-10] MEDS ORDERED: INSULIN GLARGINE 100 UNIT/ML SUBCUT SCH (09:00)
[2021-11-10] MEDS ORDERED: FUROSEMIDE 40 MG TABLET PEG SCH (09:00)
[2021-11-10] MEDS ORDERED: MULTIVITAMIN (CENTRUM) TABLET PEG SCH (09:00)
[2021-11-10] MEDS ORDERED: ASPIRIN CHEW 81 MG TABLET PO SCH (09:00)
[2021-11-10] MEDS ORDERED: SERTRALINE 50 MG TABLET PEG SCH (09:00)
[2021-11-10] MEDS ORDERED: lisinopriL 2.5 MG TABLET PEG SCH (09:00)
[2021-11-10] MEDS: CALCIUM (CARBONATE)/VITAMIN D 600 MG-400 UNIT TABLET PEG SCH (10:20)
[2021-11-10] MEDS: FERROUS SULFATE 300 MG/5 ML UDCUP PEG SCH (10:20)
[2021-11-10] MEDS: METOPROLOL TARTRATE 25 MG TABLET PEG SCH (10:21)
[2021-11-10] MEDS: OMEPRAZOLE ODT 20 MG TABLET PER TUBE SCH (10:21)
[2021-11-10] MEDS: PIPERACILLIN/TAZOBACTAM 3,375 MG in SODIUM CHLORIDE 0.9% 100 ML IV SCH (10:57)
[2021-11-10] MEDS: BRIMONIDINE/TIMOLOL OPH SOLN 5 ML BOTTLE BOTH EYES SCH (10:58)
[2021-11-10] MEDS: ZINC OXIDE PASTE 113 GM TUBE TOP SCH (10:58)
[2021-11-10 15:58] VITALS: BP 100/45
== END 2021-11-10 18:21 | disposition hospice, home (50) ==
LOC: N.EDINP 11:03 → N.ED 11:03 → SUATTDRO 16:08 → N.5E 17:51
PROVIDERS: ADMIT Internal Medicine; ATTEND Emergency Medicine